=== PATIENT | female | born 1970 | race Caucasian/White ===

== ENCOUNTER 2016-06-06 18:36 | Emergency (ER) | payer BC ==
[2016-06-06 18:44] VITALS: BMI 30.2
[2016-06-06 19:09] LABS: AUTOMATED EOSINOPHIL 0.5 % (0-5); AUTOMATED LYMPH 27.5 % (17-44); AUTOMATED MONOCYTE 5.3 % (3-10); AUTOMATED NEUTROPHIL 65.7 % (45-76); MPV 7.1 fL (7.4-10.4)
[2016-06-06 19:15] LABS: LEUKOCYTES/URINE NEG (NEGATIVE); NITRITE/URINE NEG (NEGATIVE); URINE OCCULT BLOOD NEG (NEG/TRACE); WBC/URINE 0-2 (0-5)
[2016-06-06 19:28] LABS: ALL NEG? YES; BLOOD UREA NITROGEN 6 MG/DL (7-17); CALCULATED OSMOLALITY 267 MOs/Kg (270-290); CHLORIDE 101 mEq/L (98-107); GLUCOSE 105 mg/dL (70-99); MDMA* NEG (NEGATIVE); METHAMPHETAMINES NEG (NEGATIVE); OXYCODONE NEG (NEGATIVE); SODIUM LEVEL 140 mEq/L (137-146); TOTAL PROTEIN 7.4 G/DL (6.3-8.2)
[2016-06-06 19:35] LABS: ETOH-MGDL 274 mg/dL
--- NOTE | 2016-06-06 21:47 | EDPRACDOC ---
- General Information Chief Complaint: Psychiatric Illness Stated Complaint: IVC Time Seen by Provider: 06/06/16 21:33 Information Source: Patient Mode of Arrival: Law Enforcement Home Medications: Home Medications Albuterol Sulfate [Proair Hfa] 2 puff INH Q4-6H 06/06/16 Beclomethasone Dipropionate [Qvar] 2 puff INH BID 06/06/16 Gabapentin 100 mg PO TID 06/06/16 Hydroxyzine Pamoate [Vistaril] 50 mg PO TID 06/06/16 Ziprasidone HCl [Geodon] 40 mg PO BID 06/06/16 Allergies/Adverse Reactions: Allergies Allergy/AdvReac Type Severity Reaction Status Date / Time codeine Allergy Edema-Gener Verified 06/06/16 18:44 alized Sulfa (Sulfonamide Allergy Unknown Verified 06/06/16 18:44 Antibiotics) venom-honey bee Allergy Anaphylaxis Verified 06/06/16 18:44 [bee venom (honey bee)] * - History of Present Illness Onset: yesterday Reason for Seeking Treatment: Other (ivc papers) Presents With: Reports: Other (etoh abuse. papers were taken out on pt b/c she was at [facility] and her counsellor smelled etoh on her breath.) Expresses: Denies: Suicidal Intent, Suicidal Plan Suicidal Plan: Reports: None Suicidal Attempt: Reports: N Stressors: Reports: Family (spouse is out of town. she has elderly dog that she must care for) Relevant History: Reports: Schizophrenia Medication Compliance: Yes Able to Care for Self: Yes Associated Signs and Symptoms: Reports: ETOH. 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) Psychological History: Reports: Depression, Anxiety, Substance Use Disorder Surgical History: Reports: Hysterectomy, Other (Arthroscopy) - Social Medical History Smoking Status: Heavy tobacco smoker (5 or more cigarettes/day or daily pipe/ cigar) Social History: Reports: Other Substance Use EDM Review of Systems - Review of Systems ROS Negative Except as Marked: Yes All systems reviewed and were negative except as marked Psychiatric: negative: Hallucinations, Suicidal - Physical Exam Constitutional: Alert (Awake), No apparent distress Oriented to: Time, Person, Place Last recorded Vital Signs: Last Vital Signs Temp 98 F 06/06/16 20:59 Pulse 88 06/06/16 20:59 Resp 18 06/06/16 20:59 BP 130/71 06/06/16 20:59 Pulse Ox 100 06/06/16 20:59 Oxygen Pulse Oxygen Saturation 100 O2 Device Room Air Oxygen Flow Rate Fraction of Inspired Oxygen ( FIO2) - HEENT Head: Normal Eye Exam: Normal Oropharynx: Normal - Respiratory/Cardiovascular Cardiovascular: Normal - GI Palpation: Normal - Musculoskeletal Back: Normal Extremities: Normal - Neurologic Memory Impaired: Normal Motor Function: Normal (Normal tone, Pulses 2+ No cyanosis or edema, FROM) Cranial Nerve: Normal (CN II-X11 intact sensation, strength 5/5) Cerebellar: Normal Mood Description: Normal Perception: Normal Initial Evaluation Apperance: Neat Attitude: Guarded, Bizarre Mood: Anxious Affect: Congruent w/ mood Insight: Impaired Judgement: Impaired Depressive Symptoms: Reports: Crying episodes, Hopelessness, Sadness - Re-evaluation Re-evaluation 1 Re-evaluation Time: 23:01 mental health has crafted a safe disposition for her. her mother in law will come and get her and ensure that she's not alone tonight.she will then go to [facility] in the morning at 10 AM. Finally, mental health will give her referrals for care in the OP setting. - Results 06/06/16 18:50 06/06/16 18:50 WBC 7.8 xk/uL (3.8-10.8) 06/06/16 18:50 RBC 4.02 xM/uL (4.20-5.40) L 06/06/16 18:50 Hgb 12.7 g/dL (12.0-16.0) 06/06/16 18:50 Hct 37.5 % (36-47) 06/06/16 18:50 MCV 93 fL (81-99) 06/06/16 18:50 MCH 31.7 pg (27-32) 06/06/16 18:50 MCHC 34.0 g/dl (33-36) 06/06/16 18:50 RDW 13.8 % (11.5-14.5) 06/06/16 18:50 Plt Count 292 xk/uL (130-400) 06/06/16 18:50 MPV 7.1 fL (7.4-10.4) L 06/06/16 18:50 Neut % (Auto) 65.7 % (45-76) 06/06/16 18:50 Lymph % (Auto) 27.5 % (17-44) 06/06/16 18:50 [place] % (Auto) 5.3 % (3-10) 06/06/16 18:50 Eos % (Auto) 0.5 % (0-5) 06/06/16 18:50 Baso % (Auto) 1.0 % (0-2) 06/06/16 18:50 Absolute Neuts (auto) 5.07 xk/uL (1.7-8.2) 06/06/16 18:50 Absolute Lymphs (auto) 2.11 xk/uL (0.65-4.75) 06/06/16 18:50 Sodium 140 mEq/L (137-146) 06/06/16 18:50 Potassium 4.4 mEq/L (3.5-5.1) 06/06/16 18:50 Chloride 101 mEq/L (98-107) 06/06/16 18:50 Carbon Dioxide 28 mMOL/L (22-33) 06/06/16 18:50 Anion Gap 15 mEq/L (8-16) 06/06/16 18:50 BUN 6 MG/DL (7-17) L 06/06/16 18:50 Creatinine 0.60 MG/DL (0.52-1.04) 06/06/16 18:50 Estimated GFR (MDRD) > 60 mL/min (>=60) 06/06/16 18:50 Glucose 105 mg/dL (70-99) H 06/06/16 18:50 Calculated Osmolality 267 MOs/Kg (270-290) L 06/06/16 18:50 Calcium 9.0 MG/DL (8.4-10.2) 06/06/16 18:50 Total Bilirubin 0.5 MG/DL (0.2-1.3) 06/06/16 18:50 AST 23 IU/L (14-36) 06/06/16 18:50 ALT 31 IU/L (9-52) 06/06/16 18:50 Alkaline Phosphatase 121 IU/L (38-126) 06/06/16 18:50 Total Protein 7.4 G/DL (6.3-8.2) 06/06/16 18:50 Albumin 4.2 G/DL (3.5-5.0) 06/06/16 18:50 Urine Color Pale yellow 06/06/16 18:50 Urine Clarity Clear 06/06/16 18:50 Urine pH 8.0 (5.0-8.0) 06/06/16 18:50 Ur Specific [place] 1.005 (1.003-1.035) 06/06/16 18:50 Urine Protein Neg (NEG/TRACE) 06/06/16 18:50 Urine Glucose (UA) Neg (NEGATIVE) 06/06/16 18:50 Urine Ketones Neg (NEGATIVE) 06/06/16 18:50 Urine Occult Blood Neg (NEG/TRACE) 06/06/16 18:50 Urine Nitrite Neg (NEGATIVE) 06/06/16 18:50 Urine Bilirubin Neg (NEGATIVE) 06/06/16 18:50 Urine Urobilinogen <2.0 MG/DL (0-1) 06/06/16 18:50 Ur Leukocyte Esterase Neg (NEGATIVE) 06/06/16 18:50 Urine WBC 0-2 (0-5) 06/06/16 18:50 Ur Epithelial Cells 1+ 06/06/16 18:50 Urine Bacteria Few (NEG/FEW) 06/06/16 18:50 Urine Opiates Screen Neg (NEGATIVE) 06/06/16 18:50 Ur Oxycodone Screen Neg (NEGATIVE) 06/06/16 18:50 Urine Methadone Screen Neg (NEGATIVE) 06/06/16 18:50 Ur Barbiturates Screen Neg (NEGATIVE) 06/06/16 18:50 Ur Tricyclics Screen Neg (NEGATIVE) 06/06/16 18:50 Ur Phencyclidine Scrn Neg (NEGATIVE) 06/06/16 18:50 Ur Amphetamines Screen Neg (NEGATIVE) 06/06/16 18:50 U Methamphetamines Scrn Neg (NEGATIVE) 06/06/16 18:50 Urine MDMA Screen Neg (NEGATIVE) 06/06/16 18:50 U Benzodiazepines Scrn Neg (NEGATIVE) 06/06/16 18:50 Urine Cocaine Screen Neg (NEGATIVE) 06/06/16 18:50 Ur THC Screen Neg (NEGATIVE) 06/06/16 18:50 Plasma/Serum Ethyl Alc 0.27 % (<0.01) H 06/06/16 18:50 Lab Results 06/06/16 06/06/16 06/06/16 18:50 18:50 18:50 WBC 7.8 RBC 4.02 L Hgb 12.7 Hct 37.5 MCV 93 MCH 31.7 MCHC 34.0 RDW 13.8 Plt Count 292 MPV 7.1 L Neut % (Auto) 65.7 Lymph % (Auto) 27.5 [place] % (Auto) 5.3 Eos % (Auto) 0.5 Baso % (Auto) 1.0 Absolute Neuts (auto) 5.07 Absolute Lymphs (auto) 2.11 Sodium 140 Potassium 4.4 Chloride 101 Carbon Dioxide 28 Anion Gap 15 BUN 6 L Creatinine 0.60 Estimated GFR (MDRD) > 60 Glucose 105 H Calculated Osmolality 267 L Calcium 9.0 Total Bilirubin 0.5 AST 23 ALT 31 Alkaline Phosphatase 121 Total Protein 7.4 Albumin 4.2 Urine Color Pale yellow Urine Clarity Clear Urine pH 8.0 Ur Specific [place] 1.005 Urine Protein Neg Urine Glucose (UA) Neg Urine Ketones Neg Urine Occult Blood Neg Urine Nitrite Neg Urine Bilirubin Neg Urine Urobilinogen <2.0 Ur Leukocyte Esterase Neg Urine WBC 0-2 Ur Epithelial Cells 1+ Urine Bacteria Few Urine Opiates Screen Ur Oxycodone Screen Urine Methadone Screen Ur Barbiturates Screen Ur Tricyclics Screen Ur Phencyclidine Scrn Ur Amphetamines Screen U Methamphetamines Scrn Urine MDMA Screen U Benzodiazepines Scrn Urine Cocaine Screen Ur THC Screen Plasma/Serum Ethyl Alc 0.27 H 06/06/16 18:50 WBC RBC Hgb Hct MCV MCH MCHC RDW Plt Count MPV Neut % (Auto) Lymph % (Auto) [place] % (Auto) Eos % (Auto) Baso % (Auto) Absolute Neuts (auto) Absolute Lymphs (auto) Sodium Potassium Chloride Carbon Dioxide Anion Gap BUN Creatinine Estimated GFR (MDRD) Glucose Calculated Osmolality Calcium Total Bilirubin AST ALT Alkaline Phosphatase Total Protein Albumin Urine Color Urine Clarity Urine pH Ur Specific [place] Urine Protein Urine Glucose (UA) Urine Ketones Urine Occult Blood Urine Nitrite Urine Bilirubin Urine Urobilinogen Ur Leukocyte Esterase Urine WBC Ur Epithelial Cells Urine Bacteria Urine Opiates Screen Neg Ur Oxycodone Screen Neg Urine Methadone Screen Neg Ur Barbiturates Screen Neg Ur Tricyclics Screen Neg Ur Phencyclidine Scrn Neg Ur Amphetamines Screen Neg U Methamphetamines Scrn Neg Urine MDMA Screen Neg U Benzodiazepines Scrn Neg Urine Cocaine Screen Neg Ur THC Screen Neg Plasma/Serum Ethyl Alc Decision Time to Discharge: 23:02 - Departure Yes I personally saw and evaluated the patient. Disposition: to mother in law's care. Condition: Stable Final Diagnosis: Alcoholism, Schizophrenia Acute alcohol intoxication Qualifiers: Complication of substance-induced condition: uncomplicated Qualified Code(s): F10.120 - Alcohol abuse with intoxication, uncomplicated Education/Counseling Given To: Patient Education/Counseling Given Regarding: Diagnosis, Treatment, Follow Up Referrals: Obey Wall MD [Primary Care Provider] - One Week Prescriptions: No Action Albuterol Sulfate [Proair Hfa] 2 puff INH Q4-6H Ziprasidone HCl [Geodon] 40 mg PO BID Gabapentin 100 mg PO TID Beclomethasone Dipropionate [Qvar] 2 puff INH BID Hydroxyzine Pamoate [Vistaril] 50 mg PO TID
[2016-06-06 22:38] VITALS: TEMP 98
[2016-06-06 23:40] VITALS: BP 121/71; PULSE 88
== END 2016-06-06 23:39 | disposition home or self-care (01) ==
LOC: ED 18:36
DX: F10.229 Alcohol dependence with intoxication, unspecified (principal); F20.9 Schizophrenia, unspecified
CPT/HCPCS: 36415; 80053; 80307; 81001; 85025; 86592; 99284